=== PATIENT | female | born 1950 | race Caucasian/White ===

== ENCOUNTER 2023-09-09 19:21 | Observation (INO) | payer MEDICARE, OTHER, SELFPAY ==
[2023-09-09] VITALS (7 sets, daily range): BP systolic 98–149; BP diastolic 64–73; BMI 29.8
--- NOTE | 2023-09-09 17:13 | ED.CVA ---
History of Present Illness
General
Chief Complaint: CVA/TIA Symptoms
Source: patient and family
Exam Limitations: none
Time Seen by Provider: 09/09/23 16:58
Onset of Stroke Symptoms
Onset of symptoms known: Yes
Date of onset of symptoms: 09/09/23
Travel History
Have you had any contact with someone who has COVID-19?: No
Do you have any symptoms of coronavirus? Fever > 100 degrees, chills, cough, shortness of breath, sore throat, loss of taste or smell, muscle aches, or headache?: No
History of Present Illness
History of Present Illness:
See MDM
Past History
Past History
ED Past Medical History: HTN, Hypercholesterolemia and NIDDM
Social History
Tobacco: Non-smoker
Phy Exam
Physical Exam
Physical Exam:
See MDM
Scores
NIH Stroke Score
Level of Consciousness: 0 - Alert
LOC Questions: 0-Answers both correctly
LOC Commands: 0-Performs both correctly
Best Horizontal Gaze: 0-Normal
Visual Xiao: 0=Normal, no visual loss
Facial Palsy: 0=Normal, symmetrical
Motor - Right Arm: 0=No drift 10 seconds
Motor - Left Arm: 0=No drift 10 seconds
Motor - Right Le-No drift 5 seconds
Motor - Left Le-No drift 5 seconds
Limb Ataxia: 0-Absent
Sensation: 0-Normal
Best Language: 0-No aphasia
Dysarthria: 0-Normal
Extinction and Inattention: 0-No abnormality
Total Score:: 0
Course
Orders/Labs/Results
Orders:
Orders
09/09/23 16:[address] [CT Head W/o Iv Contrast] Urgent
Comment:
Reason For Exam: visual changes
09/09/23 17:12
Electrocardiogram (*1) Urgent
Reason for Study: TIA/Stroke
EKG- Treatment ONCE
09/09/23 17:30
Aspirin Chewable [Low Strength Aspirin] 324 mg PO NOW STA
09/09/23 17:31
Complete Blood Count/With Diff Urgent
09/09/23 17:50
Comprehensive Metabolic Panel Urgent
09/09/23 18:20
PTT Urgent
Prothrombin Time Urgent
09/09/23 18:23
Potassium Chloride [KCl] 40 meq PO NOW STA
Abnormal Lab Results
09/09/23 09/09/23
17:31 17:50
RBC 3.81 L 10^6/uL
(4.20-5.40)
Hct 33.7 L %
(37.0-47.0)
MCH 32.3 H pg
(27.0-31.0)
MPV 10.8 H fL
(7.4-10.4)
Sodium 134 L mmol/L
(135-145)
Potassium 3.2 L mmol/L
(3.5-5.1)
Creatinine 0.5 L mg/dL
(0.6-1.0)
Glucose 162 H mg/dl
(70-99)
Total Protein 6.0 L g/dl
(6.3-8.2)
09/09/23 17:31
09/09/23 17:50
Vital Signs
Initial and Last Documented VS:
Initial Vital Signs
Temp Pulse Resp BP Pulse Ox
97.8 F 72 18 149/73 99
09/09/23 16:28 09/09/23 16:28 09/09/23 16:28 09/09/23 16:28 09/09/23 16:28
Last Documented Vital Signs
Temp Pulse Resp BP Pulse Ox
97.8 F 66 15 126/67 96
09/09/23 16:28 09/09/23 17:45 09/09/23 17:30 09/09/23 17:30 09/09/23 17:45
MDM/Problems Addressed
Differential Diagnosis Includes:
HPI and MDM Narrative:
73-year-old female presenting with resolved stroke symptoms. Around 3 PM today, patient felt dizzy and was having trouble walking. She developed blurry vision. She then developed expressive aphasia that lasted for 15 minutes or so. This was all
witnessed by the daughter who is at bedside. Symptoms have since resolved. Patient still complains of mild but denies blurry vision or trouble speaking
CT head was ordered in triage. It is negative. We discussed concern for TIA. Given her age and comorbidities, we discussed admission for further TIA workup
Physical exam
General: Well appearing and non-toxic
HEENT: protecting airway. Pupils equal reactive. EOMI. No visual field deficits
Neck: supple
CV: No evidence of cyanosis. Regular rate and rhythm
Resp: No accessory muscle use. Lungs clear
Abd: Non-distended
Extremities: No deformities
Neuro: alert. No focal deficits
Psych: Normal affect
Skin: Intact
Problems Addressed including Acute and Chronic Conditions affecting care:
1. Strokelike symptoms
Acuity: acute
Prognosis: stable
Details: Symptoms have since resolved. Patient is high risk given age and comorbidities. CT head was ordered. Will obtain basic blood work and admit. Patient given aspirin
2. Hypokalemia
Acuity: acute
Prognosis: stable
Details: Will replete orally
Updates
Patient has had no acute neurologic events in the emergency department. Given her comorbidities and age, will admit
Differential Diagnosis (but not limited to): TIA, stroke, hyponatremia
Testing considered: CT angiogram
Drug therapy (if applicable): OTC meds, please see d/c instruction regarding Rx drugs
Amount and/or Complexity of Data Reviewed
Clinical info obtained from: Patient
External data reviewed: N/A
Labs I independently reviewed (but not limited to): Mild hypokalemia
Radiology: The CT scan was personally and independently reviewed. In addition, official CT report reviewed.
Pulse Ox: not hypoxic
EKG independently reviewed: Sinus rhythm, normal axis, no STEMI
Assessment Consultant: N/A
Critical Care: N/A
Risk of Complication:
Social Determinants of health: Good social support
Discussed with other providers: Hospitalist
Escalation of Care includes Admit/Obs: Given age and comorbidities, will admit for further TIA workup
Occasional wrong word or 'sound a like' substitutions may have occurred due to the inherent limitations of voice recognition software. Read the chart carefully and recognize, using context, where substitutions have occurred.
*Critical Care Note
Total Time (30-74mins, 75-104mins- exclusive of procedures): Not Applicable
ED Attending Note
-
Portions of this chart may have been created with voice recognition software.� Occasional wrong word or��sound alike� substitutions may have occurred due to the inherent limitations of voice recognition software.
Discharge Plan
Departure
Patient Disposition: Admit
Date of Disposition: 09/09/23
Time of Disposition: 18:29
Admit to: Telemetry
Presentation/result/management discussed w/ accepting MD/DO: Hospitalist
Discharge Problem:
Brain TIA, Hypokalemia
Prescriptions:
No Action
celecoxib 200 mg capsule
200 mg PO BID
furosemide 40 mg tablet
40 mg PO DAILY
amlodipine 5 mg tablet
5 mg PO DAILY
aspirin 81 mg tablet,delayed release (DR/EC)
81 mg PO DAILY
hydrocortisone [Procto-Med HC] 2.5 % cream with perineal applicator
1 applic [place] BID
citalopram 20 mg tablet
20 mg PO DAILY
phenazopyridine 100 mg tablet
100 mg PO TID PRN (Reason: urinary pain)
gabapentin 100 mg capsule
100 mg PO BID
estradiol 0.01 % (0.1 mg/gram) cream
1 applic VAGINAL .2X WEEKLY
fluticasone propionate 50 mcg/actuation spray,suspension
1 spray INTRANASAL DAILY
metformin 500 mg tablet extended release 24 hr
1,000 mg PO BID
rosuvastatin 5 mg tablet
5 mg PO QPM
valsartan-hydrochlorothiazide 320-25 mg tablet
1 tab PO DAILY
levocetirizine 5 mg tablet
5 mg PO DAILY
cholecalciferol (vitamin D3) 50 mcg (2,000 unit) capsule
50 mcg PO DAILY
Ozempic 0.25 mg or 0.5 mg (2 mg/3 mL) pen injector
0.25 mg SC WEEKLY
Referrals:
Tristen Vizcaino MD [Family Provider] -
Interventions
Interventions:
ED- Fall Risk Assessment Last Done: 09/09/23 18:05
ED- Pulmonary Assessment Last Done: 09/09/23 18:05
ED- Neurological Assessment Last Done: 09/09/23 18:05
ED- Cardiac Assessment Last Done: 09/09/23 18:05
ED Swallowing Screen Last Done: 09/09/23 18:05
Discharge Date and Time
Print Language: OCCITAN
[2023-09-09 17:42] LABS: % Basophils 0.7 % (0-2); % Eosinophils 2.8 % (0-6); % Immature Granulocytes 0.4 % (0-0.5); % Lymphocytes 37.8 % (20.5-51.1); % Monocytes 8.7 % (1.7-9.3); % Neutrophils 49.6 % (42.2-75.2); Absolute Eosinophils 0.2 10^3/uL (0-0.7); Absolute Lymphocytes 2.1 10^3/uL (1.2-3.4); Absolute Monocytes 0.5 10^3/uL (0.1-0.6); Absolute Neutrophils 2.8 10^3/uL (1.4-6.5); Hematocrit 33.7 % (37.0-47.0); Hemoglobin 12.3 g/dL (12.0-16.0); Mean Corp Hgb Conc. 36.5 g/dL (33.0-37.0); Mean Corpuscular Hgb 32.3 pg (27.0-31.0); Mean Corpuscular Volume 88.5 fL (81.0-99.0); Mean Platelet Volume 10.8 fL (7.4-10.4); Nucleated Red Blood Cells % 0 %; Platelet Count 209 10^3/uL (130-400); Red Blood Cell Count 3.81 10^6/uL (4.20-5.40); Red Cell Dist. Width 12.3 % (11.5-14.5); White Blood Cell Count 5.6 10^3/uL (4.8-10.8)
[2023-09-09] MEDS: LOW STRENGTH ASPIRIN 324 MG PO (17:45)
[2023-09-09 18:19] LABS: ALT (SGPT) 30 U/L (0-35); AST (SGOT) 27 U/L (14-36); Albumin 3.9 g/dl (3.5-5.0); Alkaline Phosphatase 55 U/L (38-126); Calcium 9.5 mg/dl (8.4-10.2); Carbon Dioxide 25 mmol/L (22-30); Chloride 98 mmol/L (98-107); Estimated Creatinine Clearance 92 ml/min; Glucose 162 mg/dl (70-99); Potassium 3.2 mmol/L (3.5-5.1); Sodium 134 mmol/L (135-145); Total Bilirubin 0.6 mg/dl (0.2-1.3); eGFR > 60.00
--- NOTE | 2023-09-09 18:28 | HPS.HSE ---
Addendum entered and electronically signed by Joel Anderson MD 09/09/23 20:48:
I saw and examined the patient.
The ZIPPER JOINER or PA's note was reviewed and I agree with the note.
Comment:
Patient 73 years old female with history hypertension, hyperlipidemia, diabetes mellitus, presented to the hospital with expressive aphasia and blurry vision and ataxia. She also felt that he was going to pass out. She also had some generalized
weakness but does not recall if it was focal. This episode lasted several minutes and resolved by the time he came to the ER. Daughter helps translate in the ED for me. She denies any chest pain or shortness of breath. Denies any nausea vomiting
diarrhea fevers or chills or denies any recent illness. She takes aspirin and low-dose statin on a regular basis. CT scan of the head shows no acute intracranial abnormality.
Physical exam:
General: Well Developed, Well Nourished and No Apparent Distress
HEENT: Normocephalic, Atraumatic and Moist Mucous Membranes
Respiratory: Clear to Auscultation; Negative Wheezes, Rales or Rhonchi
Cardiac: Regular Rhythm and S1/S2
GI: Soft, Nontender and Nondistended
Musculoskeletal: No Clubbing, No Cyanosis and No Edema
Neuro: Awake, Alert and Oriented. No gross neurological deficits at the moment but mild pronator drift in the left.
Psych: Calm
A/P:
TIA, rule out abdominal stroke--> aspirin and start Plavix, statin and check fasting lipids in a.m., plan for MRI of the brain, MRA of the head and neck, echocardiogram, PT OT eval. Neurology consult. Will give further recommendations based on her
clinical course.
Original Note:
Family Physician
-
Family Physician: Tristen Vizcaino
Chief Complaint
-
Headache dizzy trouble walking, expressive aphasia
History of Present Illness
73-year-old with past medical history for hypertension, hyperlipidemia, type 2 diabetes presented to us with sudden onset of headache. Took Tylenol with no relief in her symptoms. She walked outside and came back saying she has blurry vision.
Daughter noticed trouble walking. Patient was having trouble expressing herself. It lasted for 15 minutes. Still with some mild headache. Denied fever or chills, congestion, cough patient denied chest pain, short of breath. Patient denied
abdominal pain, nausea, vomiting, diarrhea. Patient denied dysuria hematuria.
CT head with no acute findings
Received a dose of aspirin and potassium in ER. Admitting for further management
Medical History
Past Medical History
Past Medical History: Reports Other
Additional Past Medical History:
Hypertension
Hyperlipidemia
Type 2 diabetes
Past Surgical History: Reports Other
Additional Past Surgical History:
Appendectomy
Social History
Tobacco: Non-smoker
Alcohol: None
Drug: None
Living: With Family
Family History
Family History: Not pertinent
Allergies / Home Medications
Allergies reflects when Allergies were last updated in [employer].
Home Medications with original date entered in [employer]
Allergy/Medication List:
Allergies
Allergy/AdvReac Type Severity Reaction Status Date / Time
Penicillins Allergy Rash Verified 09/09/23 16:33
Home Medications
amlodipine 5 mg tablet 5 mg PO DAILY PRN high blood pressure 09/09/23
aspirin 81 mg tablet,delayed release 81 mg PO DAILY 09/09/23
celecoxib 200 mg capsule 200 mg PO BID PRN arthritis pain 09/09/23
cholecalciferol (vitamin D3) 50 mcg (2,000 unit) capsule 50 mcg PO DAILY 09/09/23
citalopram 20 mg tablet 20 mg PO DAILY PRN depression 09/09/23
furosemide 40 mg tablet 40 mg PO DAILY PRN swelling 09/09/23
gabapentin 100 mg capsule 100 mg PO BID PRN neuropathy 09/09/23
levocetirizine 5 mg tablet 5 mg PO DAILY PRN allergies 09/09/23
metformin 500 mg tablet,extended release 24 hr 1,000 mg PO BID 09/09/23
rosuvastatin 5 mg tablet 5 mg PO QPM 09/09/23
semaglutide 0.25 mg or 0.5 mg (2 mg/3 mL) subcutaneous pen injector (Ozempic) 0.25 mg SC GARCIA 09/09/23
valsartan 320 mg-hydrochlorothiazide 25 mg tablet 0.5 tab PO BID 09/09/23
Review of Systems
-
Constitutional: Reports No Symptoms
EENT: Reports No Symptoms
Respiratory: Reports No Symptoms
Cardiac: Reports No Symptoms
Abdomen/GI: Reports No Symptoms
: Reports No Symptoms
Musculoskeletal: Reports No Symptoms
Skin: Reports No Symptoms
Neurological: Reports Dizzy, Headache and Weakness
Endocrine: Reports No Symptoms
Hematologic/Lymphatic: Reports No Symptoms
Psych: Reports No Symptoms
Physical Exam
Vital Signs
Vital Signs
Temp Pulse Resp BP Pulse Ox
97.8 F 66 15 126/67 96
09/09/23 16:28 09/09/23 17:45 09/09/23 17:30 09/09/23 17:30 09/09/23 17:45
Physical Exam
General: Well Developed, Well Nourished and No Apparent Distress
HEENT: NormoCephalic, Moist mucous membranes and Atraumatic
Respiratory: Clear
Cardiac: S1/S2 and Regular Rhythm; No Murmur or Rub
GI: Soft, Non Tender, Non Distended and Normal Bowel Sounds; No Organomegaly
Rectal: Deferred by Provider
Musculoskeletal: No Clubbing, No Cyanosis and No Edema
Skin: No Rash
Neuro: AO x 3 and Other (Left side weaker)
Psych: Calm
Laboratory Results
-
09/09/23 17:31
09/09/23 17:50
Laboratory Results
PT Cancelled 09/09/23 17:31
INR Cancelled 09/09/23 17:31
APTT Cancelled 09/09/23 17:31
Total Bilirubin 0.6 mg/dl (0.2-1.3) 09/09/23 17:50
AST 27 U/L (14-36) 09/09/23 17:50
ALT 30 U/L (0-35) 09/09/23 17:50
Alkaline Phosphatase 55 U/L (38-126) 09/09/23 17:50
Data Reviewed
-
Diagnostic Radiology: Report Reviewed by me
Lab Data: Labs Reviewed by me
Impression/Plan
-
# Expressive aphasia /dizzy /blurry vision rule out acute TIA
-CT with no acute intracranial abnormality
-EKG normal sinus rhythm
-Received aspirin,Plavix in ER
-Continue aspirin,Plavix
-MRI and MRA in the morning
-Statin continued
-Obtain A1c and lipid profile-
-PT/OT consult
-Neurology consulted
# Hypokalemia/hyponatremia likely from HCTZ
-Sodium 134, K3.2
-KCl in ER
-Monitor BMP in a.m.
# Essential hypertension
-Hold Norvasc
-Hold valsartan/HCTZ
# Type 2 diabetes
-Hold metformin
-Sliding scale
-Carb controlled diet
# Hyperlipidemia
-Statin
# DVT prophylaxis
-SCDs
# CODE STATUS
-Full code
[2023-09-09] MEDS: KCL 40 MEQ PO (18:33)
--- NOTE | 2023-09-09 18:34 | W.PN.UPDATE ---
Update Note
Progress Note Update
This serves as an addendum to the H&P dictated by Rudi Hilton on 09/09/2023.
I saw and examined the patient.
The BOW REHAIRER or PA's note was reviewed and I agree with the note.
Comment:
Patient 73 years old female with history hypertension, hyperlipidemia, diabetes mellitus, presented to the hospital with expressive aphasia and blurry vision and ataxia. She also felt that he was going to pass out. She also had some generalized
weakness but does not recall if it was focal. This episode lasted several minutes and resolved by the time he came to the ER. Daughter helps translate in the ED for me. She denies any chest pain or shortness of breath. Denies any nausea vomiting
diarrhea fevers or chills or denies any recent illness. She takes aspirin and low-dose statin on a regular basis. CT scan of the head shows no acute intracranial abnormality.
Physical exam:
General: Well Developed, Well Nourished and No Apparent Distress
HEENT: Normocephalic, Atraumatic and Moist Mucous Membranes
Respiratory: Clear to Auscultation; Negative Wheezes, Rales or Rhonchi
Cardiac: Regular Rhythm and S1/S2
GI: Soft, Nontender and Nondistended
Musculoskeletal: No Clubbing, No Cyanosis and No Edema
Neuro: Awake, Alert and Oriented. No gross neurological deficits at the moment but mild pronator drift in the left.
Psych: Calm
A/P:
TIA, rule out abdominal stroke--> aspirin and start Plavix, statin and check fasting lipids in a.m., plan for MRI of the brain, MRA of the head and neck, echocardiogram, PT OT eval. Neurology consult. Will give further recommendations based on her
clinical course.
[2023-09-09 18:52] LABS: Blood Urea Nitrogen 14 mg/dl (7-17)
[2023-09-09 19:00] LABS: INR 1.02; PT 13.4 Sec (11.4-14.6)
[2023-09-09] MEDS: PLAVIX 300 MG PO (19:32)
[2023-09-09 21:54] LABS: Glucose - Point of Care 211 mg/dl (70-99)
--- NOTE | 2023-09-10 00:46 | PTCARENOTE ---
Patient received in bed from ED @ 2100. Patient AAOx3, ambulated from stretcher to bed. NIH and neuro checks completed. Oriented to room and call herndon.
[2023-09-10 03:38] VITALS: BP 129/68
[2023-09-10 07:30] VITALS: BP 131/68
[2023-09-10 07:52] LABS: Glucose - Point of Care 134 mg/dl (70-99)
--- NOTE | 2023-09-10 07:56 | CON.NEURO4 ---
Addendum entered and electronically signed by Tomer Elam MD 09/10/23 14:54:
I saw and evaluate the patient reviewed the note by Adali Ariza agree the findings on comments. Brazilian talent acquisition consultant used :
73-year-old woman with a past ministry of hypertension diabetes obesity presented to hospital with headache, lightheadedness expressive aphasia with symptoms lasting around 1 hour or less. No history of TIA or stroke. Denies any history of
migraine headaches although may get headaches with high blood pressure she denies any history of headaches with photophobia vision change or limit her activity. She feels that she is returned to normal.
Neurologic examination is normal
MRI of the brain reviewed that does not show any acute or chronic infarct MRA of the head and neck does not show any significant stenosis or intracranial occlusions or any significant vessel pathology
Assessment: Most likely a TIA of the left hemisphere given the acuity of onset, focal neurologic symptoms as well as risk factors for stroke/TIA, less likely a migraine headache as the patient does not have any characteristic history of migraine
headache.
Recommendations
-Treat with DAPT therapy aspirin and Plavix for 21 days and then go back to her regular aspirin afterward
-Can continue on her home dose of statin as LDL is less than 70
-Discussed the signs of stroke with her that would prompt immediate medical attention calling 911
-Discussed continue to work on exercise diet and control of diabetes and hypertension
-No further workup or monitoring felt necessary no barriers to discharge from my standpoint
Original Note:
Documented by User: Adali Moncada NP 09/10/23 14:35
Consultation - Neurology 4
-
CONSULTING PHYSICIAN: Juanis Elam MD
REFERRING PHYSICIAN: Hospitalists/BLAINE Dey
DICTATED BY: BLAINE Gunn
DATE/TIME OF REQUEST: 09/09/23
DATE/TIME OF CONSULTATION: 09/10/23
Reason for Consultation: TIA/CVA
History of Present Illness:
This is a 73-year-old right-handed female who has presented to the hospital on 09/09/23 with report of headache, light-headedness, aphasia, and ataxia. Patient reports that for the past two weeks she has been feeling light-headed with ambulation and
unsteady on her feet. She has been reaching for furniture to steady herself, which is very unusual for her. Yesterday (09/09/23) around 1500, she reports suddenly developing a severe headache. She took ibuprofen then proceeded to go outside for some
fresh air. Outside, her vision went foggy and she felt lightheaded. She went to walk back inside and felt weak and very unsteady on her feet. She denies any diaphoresis or loss of consciousness. She tried to describe to her daughter what was
happening and only short sounds would come out. She also reports having difficulty understanding what her daughter was saying to her. This lasted for about 15-20 minutes before resolving. On arrival to the ER she reports feeling back to her baseline
except for a mild headache. CT head was obtained and was negative for any acute abnormalities. Blood pressure was 149/73. NIHSS was 0. She was not a candidate for TNK/IAT due to resolution of symptoms/NIHSS 0. She was loaded with DAPT in the ER. She
reports that her headache resolved last night. Today (09/10/23), she feels at her baseline. She denies any headache, dizziness, vision changes, speech/swallow difficulty, nausea, weakness, chest pain, palpitations, and shortness of breath. She
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 She thinks during the event her left side might have felt slightly weaker. She is taking aspirin 81mg daily and denies
missing any doses. She denies any history of migraine, TIA, stroke, or events like this in the past.
Past Medical History: HTN, HLD, NIDDM, neuropathy, depression
Surgical History: Appendectomy
Family History: Reviewed and noncontributory.
Social History: Denies tobacco, alcohol, and illicit drug use.
Allergies: Penicillins.
Home Medications: See below.
Review of Symptoms:
Patient denies any fever, headache, chest pain, shortness of breath, GI or symptoms.
�Per the HPI.�All systems are reviewed negative except above.
Physical Exam:
The patient is afebrile, abdomen is nondistended, breathing is unlabored, skin is warm and dry, no edema.
NIH Stroke Scale:
I performed the NIH stroke scale on the patient on 09/10/23 at 0900. The patient scored 0 points on the NIH stroke scale assessment, which were assigned as follows: See below.
Neurologic Examination:
The patient is awake, alert and oriented x 3. She is able to follow commands and answer questions appropriately. There is no aphasia or dysarthria. On cranial nerve assessment, pupils are 3 mm bilateral, round and reactive to light and
accommodation. Visual xiao are full. Extraocular movements are intact. Facial sensations are intact and bilaterally symmetrical, there is no facial asymmetry. Hearing is intact bilaterally to normal conversation volume. Tongue palate and uvula are
midline. Sternocleidomastoid strengths are full bilaterally. Motor strengths are 5/5 bilateral upper and lower extremities on medical research [place] scale. There is no drift or involuntary movement noted. Deep tendon reflexes are 2+ bilateral
upper and lower extremities and Babinski is absent bilaterally. Sensations of touch, temperature and vibration are intact and bilaterally symmetrical. There was no extinction noted on double simultaneous stimulation. Coordination is intact by finger
to nose bilaterally.
Lab Results: See below.
Neuro Imaging:
1. CT Head 09/09/23: No acute intracranial abnormality noted.
Differentials for the patient's presentation include:
1. TIA or small stroke likely producing patient's symptoms.
2. Orthostatic hypotension possible.
Patient has the following risk factors for their symptoms: HTN, HLD, NIDDM
IV Tenecteplase/IAT candidacy: She was not a candidate for TNK/IAT due to resolution of symptoms/NIHSS 0.
Recommendations:
-Continue DAPT with aspirin 81mg and clopidogrel 75mg daily for 21 days. After 21 days, discontinue clopidogrel and continue aspirin daily only, indefinitely.
-MRI brain, MRA head/neck ordered/pending.
-TTE ordered/pending.
-Orthostatic vital signs BID.
-Permissive hypertension until today at 1500, then goal normotension.
-LDL goal <70. LDL is 37. Continue home rosuvastatin 5mg daily.
-Goal normoglycemia, hbA1c is 6.6.
-NIHSS and neurological checks per unit guidelines.
-Provide patient/family with stroke education packet.
-PT/OT/ST evaluations.
-DVT prophylaxis.
-Will follow pending results.
Discussed patient care with: Dr. Elam, the patient
Vital Signs and Labs
-
Vital Signs and Labs:
Vital Signs
Temp Pulse Resp BP Pulse Ox
97.9 F 62 22 131/68 97
09/10/23 07:30 09/10/23 07:30 09/10/23 07:30 09/10/23 07:30 09/10/23 07:30
Lab Results
09/10/23 07:17
09/10/23 07:17
PT 13.4 Sec (11.4-14.6) 09/09/23 18:41
INR 1.02 09/09/23 18:41
APTT 28.0 Sec (23.4-35.0) 09/09/23 18:41
Sodium 137 mmol/L (135-145) 09/10/23 07:17
Potassium 4.2 mmol/L (3.5-5.1) D 09/10/23 07:17
BUN 12 mg/dl (7-17) 09/10/23 07:17
Glucose 122 mg/dl (70-99) H 09/10/23 07:17
Calcium 9.5 mg/dl (8.4-10.2) 09/10/23 07:17
LDL Cholesterol, Calc 37 mg/dl 09/10/23 07:17
Medications
-
Active Medications
Generic Name Dose Route Start Last Admin
Trade Name Freq PRN Reason Stop Dose Admin
Acetaminophen 650 mg 09/09/23 20:59
Acetaminophen 650 Mg Rectal Suppository RECTAL 10/07/23 20:58
Q4HPRN PRN
YIN, mild pain, or temp >100.4F
Acetaminophen 650 mg 09/09/23 20:59
Acetaminophen 325 Mg Tablet PO 10/07/23 20:58
Q4HPRN PRN
YIN, mild pain, or temp >100.4F
Aspirin 81 mg 09/10/23 08:00
Aspirin 81 Mg (Enteric Coated) Tablet PO 10/08/23 07:59
DAILY CHRIS
Citalopram Hydrobromide 20 mg 09/09/23 20:59
Citalopram 20 Mg Tablet PO 10/07/23 20:58
DAILYPRN PRN
depression
Clopidogrel Bisulfate 75 mg 09/10/23 08:00
Clopidogrel 75 Mg Tablet PO 10/08/23 07:59
DAILY CHRIS
Dextrose 12.5 grams 09/09/23 20:59
Dextrose 50% (0.5 Grams/Ml) 50 Ml Syringe IV 10/07/23 20:58
Y56ECAT PRN
hypoglycemia
Protocol
Glucagon 1 mg 09/09/23 20:59
Glucagon 1 Mg Vial IM 10/07/23 20:58
PRN PRN
hypoglycemia
Protocol
Insulin Aspart 0 units 09/10/23 07:30
Insulin Aspart Low Resistance 300 Units/3 Ml Pen.Injctr SC 10/08/23 07:29
AC CHRIS
Protocol
Rosuvastatin Calcium 5 mg 09/10/23 18:00
Rosuvastatin (Crestor) 5 Mg Tablet PO 10/08/23 17:59
QPM CHRIS
Sodium Chloride 0 flush 09/09/23 22:00
Sodium Chloride 0.9% (Flush) Syringe IV 10/07/23 21:59
PER PROTOCOL CHRIS
Home Medications
�Medication �Instructions �Recorded
amlodipine 5 mg tablet 5 mg PO DAILY PRN high blood 09/09/23
pressure
aspirin 81 mg tablet,delayed 81 mg PO DAILY 09/09/23
release
celecoxib 200 mg capsule 200 mg PO BID PRN arthritis pain 09/09/23
cholecalciferol (vitamin D3) 50 50 mcg PO DAILY 09/09/23
mcg (2,000 unit) capsule
citalopram 20 mg tablet 20 mg PO DAILY PRN depression 09/09/23
furosemide 40 mg tablet 40 mg PO DAILY PRN swelling 09/09/23
gabapentin 100 mg capsule 100 mg PO BID PRN neuropathy 09/09/23
levocetirizine 5 mg tablet 5 mg PO DAILY PRN allergies 09/09/23
metformin 500 mg tablet,extended 1,000 mg PO BID 09/09/23
release 24 hr
rosuvastatin 5 mg tablet 5 mg PO QPM 09/09/23
semaglutide 0.25 mg or 0.5 mg (2 0.25 mg SC GARCIA 09/09/23
mg/3 mL) subcutaneous pen injector
(Ozempic)
valsartan 320 0.5 tab PO BID 09/09/23
mg-hydrochlorothiazide 25 mg tablet
NIH Stroke Score
Subsequent NIH Scale
Date of Subsequent NIH Scale: 09/10/23
Time of Subsequent NIH Scale: 09:00
NIH Stroke Score
Level of Consciousness: 0 - Alert
LOC Questions: 0-Answers both correctly
LOC Commands: 0-Performs both correctly
Best Horizontal Gaze: 0-Normal
Visual Xiao: 0=Normal, no visual loss
Facial Palsy: 0=Normal, symmetrical
Motor - Right Arm: 0=No drift 10 seconds
Motor - Left Arm: 0=No drift 10 seconds
Motor - Right Le-No drift 5 seconds
Motor - Left Le-No drift 5 seconds
Limb Ataxia: 0-Absent
Sensation: 0-Normal
Best Language: 0-No aphasia
Dysarthria: 0-Normal
Extinction and Inattention: 0-No abnormality
Total Score:: 0
Modified [place] (mRS) Score
Modified Joshua Scale (mRS): No symptoms
Score: 0

Documented by User: Tomer Elam MD 09/10/23 14:51
NIH Stroke Score
NIH Stroke Score
Total Score:: 0
Modified [place] (mRS) Score
Score: 0
[2023-09-10 08:09] LABS: Hematocrit 35.5 % (37.0-47.0); Hemoglobin 12.5 g/dL (12.0-16.0); Mean Corp Hgb Conc. 35.2 g/dL (33.0-37.0); Mean Corpuscular Hgb 31.8 pg (27.0-31.0); Mean Corpuscular Volume 90.3 fL (81.0-99.0); Mean Platelet Volume 10.4 fL (7.4-10.4); Platelet Count 201 10^3/uL (130-400); Red Blood Cell Count 3.93 10^6/uL (4.20-5.40); Red Cell Dist. Width 12.2 % (11.5-14.5); White Blood Cell Count 4.9 10^3/uL (4.8-10.8)
[2023-09-10 08:57] LABS: Blood Urea Nitrogen 12 mg/dl (7-17); Calcium 9.5 mg/dl (8.4-10.2); Carbon Dioxide 24 mmol/L (22-30); Chloride 104 mmol/L (98-107); Estimated Creatinine Clearance 92 ml/min; Glucose 122 mg/dl (70-99); HDL Cholesterol 39 mg/dl; LDL Cholesterol, Calculated 37 mg/dl; Potassium 4.2 mmol/L (3.5-5.1); Sodium 137 mmol/L (135-145); Total Cholesterol 95 mg/dl (50-199); Triglyceride 97 mg/dl (10-149); Very Low Density Lipoprotein 19 mg/dl (0-30); eGFR > 60.00
--- NOTE | 2023-09-10 09:00 | W.PN.HOSP.TC ---
Today's Communication/Plan
-
MRI of the brain, MRA of the head and neck. Echocardiogram. Check orthostatics. PT OT eval
Assessment / Plan
Assessment / Plan
Physical exam:
General: Well Developed, Well Nourished and No Apparent Distress
HEENT: Normocephalic, Atraumatic and Moist Mucous Membranes
Respiratory: Clear to Auscultation; Negative Wheezes, Rales or Rhonchi
Cardiac: Regular Rhythm and S1/S2
GI: Soft, Nontender and Nondistended
Musculoskeletal: No Clubbing, No Cyanosis and No Edema
Neuro: Awake, Alert and Oriented. No gross neurological deficits at the moment but mild pronator drift in the left.
Psych: Calm
A/P:
# Expressive aphasia /dizzy /blurry vision rule out acute TIA versus orthostatic hypotension versus evolving small stroke
-CT with no acute intracranial abnormality
-EKG normal sinus rhythm
-Received aspirin,Plavix in ER
-Continue aspirin,Plavix
-MRI and MRA pending
-Statin continued
-Obtain A1c and lipid profile-LDL 37, hemoglobin A1c 6.6
-PT/OT consult
-Neurology consulted
# Hypokalemia/hyponatremia likely from HCTZ
-Sodium 134, K3.2
-KCl in ER
-Monitor BMP in a.m.
# Essential hypertension
-Hold Norvasc
-Hold valsartan/HCTZ
# Type 2 diabetes
-Hold metformin
-Sliding scale
-Carb controlled diet
# Hyperlipidemia
-Statin
# DVT prophylaxis
-SCDs
# CODE STATUS
-Full code
Anticipated Discharge: Within 24 hours
Subjective/Interval History
-
Date of Service: September 10, 2023
Patient denies any new events today.
Objective Data
-
Labs:
Laboratory Results
09/10/23
07:17
WBC 4.9
Hgb 12.5
Hct 35.5 L
Plt Count 201
Sodium 137
Potassium 4.2 D
Chloride 104
Carbon Dioxide 24
BUN 12
Creatinine 0.5 L
Glucose 122 H
Calcium 9.5
Vital Signs:
Vital Signs
Temp Pulse Resp BP Pulse Ox
98.1 F 69 18 129/68 97
09/10/23 03:38 09/10/23 03:38 09/10/23 03:38 09/10/23 03:38 09/10/23 03:38
I&O
09/09/23 09/10/23 09/11/23
06:59 06:59 06:59
Intake Total 120 / 120
Balance 120 / 120
[2023-09-10] MEDS: ASPIR LOW (ENTERIC COATED) 81 MG PO (09:48)
[2023-09-10] MEDS: PLAVIX 75 MG PO (09:48)
[2023-09-10 09:58] LABS: Glycohemoglobin (HgbA1c) 6.6 % (4.0-5.6)
--- NOTE | 2023-09-10 10:28 | PTOTSP ---
SPEECH THERAPY SWALLOW EVALUATION:
Patient presents with grossly functional oropharyngeal swallow. No signs or symptoms of aspiration noted at this time. WBC WNL. Head CT demonstrating no acute abnormality. Recommend continue Regular texture diet, thin liquids. Medications whole with
liquid as tolerated. General aspiration precautions including upright positioning and slow rate of intake. Swallow therapy is not indicated at this time. Informal assessment of speech/language/cognitive communication skills appeared grossly WFL at
this time. ST to follow-up for comprehensive Speech/language/cognitive communication evaluation pending MRI results if warranted. Otherwise, no further ST services are indicated at this time.
RECOMMEND:
1) Regular texture diet, thin liquids
2) Medications whole with liquid as tolerated
3) ST to follow-up for comprehensive Speech/language/cognitive communication evaluation pending MRI results if warranted
--- NOTE | 2023-09-10 11:43 | CM ---
Addendum entered by Nguyen Carlos 09/10/23 15:37:
CM spoke with patient and patients daughter, declining home PT needs at this time. Patients son in law will provide transportation home.
[facility]

Original Note:
Patient seen bedside, spoke with patients daughter, Lauren, who assisted with translation. Per daughter, patient resides independently in a two story home with two steps to enter, patient has a cane if needed. Patient has caregivers 8 hours daily
through [facility] ([phone]), spoke with agency, confirmed patient receives care, will fax clinicals to [phone]. Lauren confirmed patients PCP Tristen Vizcaino, [facility] in [place]. CM reviewed SCHAEFER form
with patient, refused to sign, placed in chart. CM will continue to follow for discharge planning needs, will watch for PT/OT evaluations.
Plan; home with caregiver, watch for further needs from PT/OT evals.
[facility]
[2023-09-10 11:45] LABS: Glucose - Point of Care 118 mg/dl (70-99)
[2023-09-10 14:10] VITALS: BP 139/75; PULSE 67; O2SAT 98
--- NOTE | 2023-09-10 14:52 | W.DCSUMMARY ---
Discharge Summary
Discharge Data
Date of Admission: 09/09/23
Date of Discharge: 09/10/23
-
Pending Results: No
Hospital Course
Patient 73 years old female history of hypertension, diabetes mellitus, obesity, hyperlipidemia, presented to the hospital with sudden onset of transient neurological deficits. Neurology consulted. MRI of the brain no acute intracranial process
and MRA of the head and neck no significant stenosis (including less than 50% stenosis of the ICA bilaterally). Transthoracic echocardiogram normal EF and no thrombus. Patient was placed on dual antiplatelet therapy and kept on her statins.
Neurology recommended to continue dual antiplatelet therapy for 21 days and then back to her aspirin afterwards. She is neurologically intact and back to her baseline. Neurology cleared for discharge. She is going to be discharged in stable
condition today.
Discharge duration: 34 minutes
Discharge Plan
-
Patient Disposition: Home (Routine Discharge)
Discharge Diagnosis/Procedures: Transient ischemic attack
Diet: As tolerated
Activity: As tolerated
Blood Work: Please PCP to order CBC, BMP within 1 week
Referrals:
Tristen Vizcaino MD [Family Provider] - in less than 1 week
Prescriptions:
New
clopidogrel 75 mg Tablet
75 mg PO DAILY 21 Days Qty: 21 0RF
Continued
furosemide 40 mg tablet
40 mg PO DAILY PRN (Reason: swelling)
amlodipine 5 mg tablet
5 mg PO DAILY PRN (Reason: high blood pressure)
aspirin 81 mg tablet,delayed release (DR/EC)
81 mg PO DAILY
citalopram 20 mg tablet
20 mg PO DAILY PRN (Reason: depression)
gabapentin 100 mg capsule
100 mg PO BID PRN (Reason: neuropathy)
metformin 500 mg tablet extended release 24 hr
1,000 mg PO BID
rosuvastatin 5 mg tablet
5 mg PO QPM
valsartan-hydrochlorothiazide 320-25 mg tablet
0.5 tab PO BID
levocetirizine 5 mg tablet
5 mg PO DAILY PRN (Reason: allergies)
cholecalciferol (vitamin D3) 50 mcg (2,000 unit) capsule
50 mcg PO DAILY
Ozempic 0.25 mg or 0.5 mg (2 mg/3 mL) pen injector
0.25 mg SC GARCIA
Discontinued
celecoxib 200 mg capsule
200 mg PO BID PRN (Reason: arthritis pain)
Discharge Orders:
Discharge Patient (As Directed); Ordered 09/10/23
Ordered By: Joel Anderson
Discharge Date and Time
Discharge Date/Time: 09/10/23 17:16
Print Language: BRITISH
[2023-09-10 15:00] VITALS: BP 141/82
== END 2023-09-10 17:16 | disposition home health service (06) ==
LOC: 4 WEST ACU 19:21
PROVIDERS: Registered Nurse; ADMITTING PHYSICIAN Hospitalist; EMERGENCY PHYSICIAN Student in an Organized Health Care Education/Training Program; FAMILY PHYSICIAN Internal Medicine; OTHER PHYSICIAN Student in an Organized Health Care Education/Training Program
DX: G45.9 Transient cerebral ischemic attack, unspecified (principal); E78.00 Pure hypercholesterolemia, unspecified; E11.40 Type 2 diabetes mellitus with diabetic neuropathy, unspecified; I10 Essential (primary) hypertension; E87.1 Hypo-osmolality and hyponatremia; E87.6 Hypokalemia; F32.A Depression, unspecified; E66.9 Obesity, unspecified; Z68.29 Body mass index [BMI] 29.0-29.9, adult; Z79.02 Long term (current) use of antithrombotics/antiplatelets; Z79.82 Long term (current) use of aspirin; Z79.84 Long term (current) use of oral hypoglycemic drugs; Z79.899 Other long term (current) drug therapy
CPT/HCPCS: 70450; 70544; 70548; 70551; 80048; 80053; 80061; 82962; 83036; 85025; 85027; 85610; 85730; 92610; 93005; 93306; 97161; 97165; 99285; A9585; G0378

== ENCOUNTER 2024-03-07 17:59 | Observation (INO) | payer MEDICARE, OTHER, SELFPAY ==
[2024-03-07] VITALS (7 sets, daily range): BP systolic 134–169; BP diastolic 68–84; PULSE 64–74; BMI 34.0
--- NOTE | 2024-03-07 12:22 | ED.GENMED ---
ED Provider Triage
<Deepak Jean PA-C - Last Filed: 03/07/24 12:25>
-
Patient seen by provider in Triage?: Seen in Triage
Attestation: A medical screening examination has been initiated by a qualified medical provider. Based on the assessment performed at this time, it has been determined that an emergent medical condition may exist and the patient has been informed
that further medical evaluation and possible additional diagnostic testing may be needed.
HPI: 74-year-old female with history of hypertension presents for evaluation of dizziness. Symptoms were initially present whether she was upright or lying down, was prescribed meclizine by her primary care physician and feels this is somewhat
beneficial but she is still dizzy and has a hard time walking. No headache or vision changes. No chest pain. Has noted hypertensive episodes at home with systolic pressures greater than 180
GENERAL: Alert , in no apparent distress
EYE: No visual abnormalities.
NECK: Trachea midline
ENT: No visible abnormalities.
LUNGS: No acute respiratory distress
NEUROLOGICAL: Alert and oriented
SKIN: Skin intact. No visible changes.
MUSCULOSKELETAL: Moving extremities normally
PSYCH: Normal and appropriate interaction.
A/P: Dizziness, there does appear to be a vertiginous aspect of her symptoms however given that she does not have resolution when lying flat and no significant proved with meclizine will obtain CT of the head in addition to labs and EKG
This is a medical evaluation conducted in person to initiate diagnostic evaluation and provide initial therapeutics. Please see further documentation by the treating clinician.
History of Present Illness
<Deepak Jean PA-C - Last Filed: 03/07/24 12:25>
General
Chief Complaint: Blood Pressure Problem
Time Seen by Provider: 03/07/24 14:03
<Nicki Shabazz PA-C - Last Filed: 03/07/24 18:31>
General
Source: patient
Exam Limitations: none
Nursing documentation reviewed up to this point in time: agreed with
History of Present Illness
History of Present Illness:
73-year-old female with history hypertension, TIA, diabetes presenting to the emergency department for evaluation of dizziness. Patient states that over the past 5 to 6 days she has been experiencing dizziness. Symptoms do seem to be worse with
movement although mildly present at rest. Patient describes dizziness as a 'spinning sensation'. Patient reports multiple episodes of vomiting on initial onset 6 days ago. Patient does note that she has noticed intermittent high blood pressure
readings into the 180s/100s since dizziness is started patient did have a telemedicine visit with her primary care Wednesday who prescribed her a few days of meclizine with very little to no improvement in symptoms.
Patient did have a TIA in August 2023.
Past History
<Deepak Jean PA-C - Last Filed: 03/07/24 12:25>
Past History
ED Past Medical History: HTN, Hypercholesterolemia and NIDDM
Social History
Tobacco: Non-smoker
Review of Systems
<Nicki Shabazz PA-C - Last Filed: 03/07/24 18:31>
Review of Systems
Allergies reviewed?: Yes
All Other Systems: ROS reviewed and negative except as documented in HPI and ROS
Phy Exam
<Nicki Shabazz PA-C - Last Filed: 03/07/24 18:31>
Physical Exam
Physical Exam:
Vitals: Patient's vital signs are stable. Afebrile
General: Patient is well appearing, no acute distress
Skin: Warm and dry, no rashes or lesions
Head: Normocephalic, atraumatic
Eyes: Sclera nonicteric. EOMs intact. Pupils equal round and reactive to light bilaterally. No nystagmus.
Throat: Protecting airway
Neck: Normal ROM, no cervical spine tenderness, no meningismus
Cardiac: Regular rate and rhythm, no murmurs.
Pulm: Normal respiratory effort, no wheezes, rales, rhonchi heard on exam.
Abdomen: Abdomen soft. No abdominal tenderness.
Extremities: No evidence of cyanosis or edema. Great distal pulses
Neuro: AAOx3. Mild ataxia noted. CN II-XII intact. No focal neurologic deficits. Normal finger-nose. Normal [id number]. Fluid speech.
Psychiatric: Normal affect.
Course
<Deepak Jean PA-C - Last Filed: 03/07/24 12:25>
Orders/Labs/Results
Orders:
Orders
03/07/24 12:21
Electrocardiogram (*1) Urgent
Reason for Study: Vertigo / Dizzy
CT Head W/o Iv Contrast Urgent
Comment:
Reason For Exam: dizziness
EKG- Treatment ONCE
03/07/24 12:33
Complete Blood Count/With Diff Urgent
Comprehensive Metabolic Panel Urgent
03/07/24 15:00
Consult Neurology [NEUROLOGY CONSULT] Urgent
Consulting Provider: Christen Rodas
Was physician already notified: Yes
03/07/24 16:03
MR Brain Without Contrast Routine
Comment:
Reason For Exam: vertigo
OK for patient to be off Cardiac Monitoring for MRI: No
Recent pill cam endoscopy?: No
03/07/24 17:46
Admit/Transfer Patient As Directed
Co-Sign Provider:
Level of Care: Observation services
Assign to:: Telemetry
Physician / Group: Jaswant
Diagnosis: Vertigo
Reason for Telemetry: CVA/TIA
Date to Stop Telemetry: 03/10/24
Time to Stop Telemetry: 11:00
03/07/24 17:47
Code Status As Directed
Resuscitation Status: Full Code
03/10/24 11:00
DC Protocol for Telemetry ONCE
Abnormal Lab Results
03/07/24
12:33
MCH 31.4 H pg
(27.0-31.0)
Glucose 173 H mg/dl
(70-99)
AST 42 H U/L
(14-36)
ALT 51 H U/L
(0-35)
03/07/24 12:33
03/07/24 12:33
Vital Signs
Initial and Last Documented VS:
Initial Vital Signs
Temp Pulse Resp BP Pulse Ox
98.2 F 78 18 146/82 98
03/07/24 12:19 03/07/24 12:19 03/07/24 12:19 03/07/24 12:19 03/07/24 12:19
Last Documented Vital Signs
Temp Pulse Resp BP Pulse Ox
98.2 F 64 16 141/70 96
03/07/24 12:19 03/07/24 17:00 03/07/24 17:00 03/07/24 17:00 03/07/24 17:00
<Nicki Shabazz PA-C - Last Filed: 03/07/24 18:31>
Orders/Labs/Results
Orders:
Orders
03/07/24 12:21
Electrocardiogram (*1) Urgent
Reason for Study: Vertigo / Dizzy
CT Head W/o Iv Contrast Urgent
Comment:
Reason For Exam: dizziness
EKG- Treatment ONCE
03/07/24 12:33
Complete Blood Count/With Diff Urgent
Comprehensive Metabolic Panel Urgent
03/07/24 15:00
Consult Neurology [NEUROLOGY CONSULT] Urgent
Consulting Provider: Christen Rodas
Was physician already notified: Yes
03/07/24 16:03
MR Brain Without Contrast Routine
Comment:
Reason For Exam: vertigo
OK for patient to be off Cardiac Monitoring for MRI: No
Recent pill cam endoscopy?: No
03/07/24 17:46
Admit/Transfer Patient As Directed
Co-Sign Provider:
Level of Care: Observation services
Assign to:: Telemetry
Physician / Group: Jaswant
Diagnosis: Vertigo
Reason for Telemetry: CVA/TIA
Date to Stop Telemetry: 03/10/24
Time to Stop Telemetry: 11:00
03/07/24 17:47
Code Status As Directed
Resuscitation Status: Full Code
03/10/24 11:00
DC Protocol for Telemetry ONCE
Abnormal Lab Results
03/07/24
12:33
MCH 31.4 H pg
(27.0-31.0)
Glucose 173 H mg/dl
(70-99)
AST 42 H U/L
(14-36)
ALT 51 H U/L
(0-35)
03/07/24 12:33
03/07/24 12:33
Vital Signs
Initial and Last Documented VS:
Initial Vital Signs
Temp Pulse Resp BP Pulse Ox
98.2 F 78 18 146/82 98
03/07/24 12:19 03/07/24 12:19 03/07/24 12:19 03/07/24 12:19 03/07/24 12:19
Last Documented Vital Signs
Temp Pulse Resp BP Pulse Ox
98.2 F 64 16 141/70 96
03/07/24 12:19 03/07/24 17:00 03/07/24 17:00 03/07/24 17:00 03/07/24 17:00
Mohsenlt;Joe Kearns, DO - Last Filed: 03/07/24 15:09>
Orders/Labs/Results
Orders:
Orders
03/07/24 12:21
Electrocardiogram (*1) Urgent
Reason for Study: Vertigo / Dizzy
CT Head W/o Iv Contrast Urgent
Comment:
Reason For Exam: dizziness
EKG- Treatment ONCE
03/07/24 12:33
Complete Blood Count/With Diff Urgent
Comprehensive Metabolic Panel Urgent
03/07/24 15:00
Consult Neurology [NEUROLOGY CONSULT] Urgent
Consulting Provider: Christen Rodas
Was physician already notified: Yes
03/07/24 16:03
MR Brain Without Contrast Routine
Comment:
Reason For Exam: vertigo
OK for patient to be off Cardiac Monitoring for MRI: No
Recent pill cam endoscopy?: No
03/07/24 17:46
Admit/Transfer Patient As Directed
Co-Sign Provider:
Level of Care: Observation services
Assign to:: Telemetry
Physician / Group: Jaswant
Diagnosis: Vertigo
Reason for Telemetry: CVA/TIA
Date to Stop Telemetry: 03/10/24
Time to Stop Telemetry: 11:00
03/07/24 17:47
Code Status As Directed
Resuscitation Status: Full Code
03/10/24 11:00
DC Protocol for Telemetry ONCE
Abnormal Lab Results
03/07/24
12:33
MCH 31.4 H pg
(27.0-31.0)
Glucose 173 H mg/dl
(70-99)
AST 42 H U/L
(14-36)
ALT 51 H U/L
(0-35)
03/07/24 12:33
03/07/24 12:33
Vital Signs
Initial and Last Documented VS:
Initial Vital Signs
Temp Pulse Resp BP Pulse Ox
98.2 F 78 18 146/82 98
03/07/24 12:19 03/07/24 12:19 03/07/24 12:19 03/07/24 12:19 03/07/24 12:19
Last Documented Vital Signs
Temp Pulse Resp BP Pulse Ox
98.2 F 64 16 141/70 96
03/07/24 12:19 03/07/24 17:00 03/07/24 17:00 03/07/24 17:00 03/07/24 17:00
<Nicki Shabazz PA-C - Last Filed: 03/07/24 18:31>
MDM/Problems Addressed
Differential Diagnosis Includes:
Not limited to: BPPV, labyrinthitis dehydration, orthostatic hypotension, cardiac arrhythmia, CVA
MDM/Problems Addressed:
73-year-old female presenting with 6 days of persistent dizziness and elevated blood pressure at home. Dizziness somewhat positional in nature although associated with ataxia and a few episodes of vomiting. No improvement with meclizine as
prescribed by PCP. Mildly hypertensive here although otherwise vital signs stable. Physical exam as above. Patient does have mild ataxia although no other focal neurologic findings. Normal [id number]-rb-lftv and uuqu-iw-ynsv. Labs initiated in
triage without any clinically significant abnormalities. CT head initially in triage without any acute abnormalities. EKG without any acute ischemic changes. Differential broad at this time and includes peripheral process such as BPPV, lab
and-itis, etc. Although given associated ataxia and history of TIA�must rule out central process such as CVA. Will consult neurology for evaluation and their input.
Update: Neurology, Dr. Rodas, down to see patient at bedside. Recommends admission to hospitalist for MRI to rule out central process. Plan for admission to hospitalist, MRI tomorrow and PT eval for vestibular therapy. Patient accepted to
hospitalist in stable condition. Patient seen with attending physician.
Chronic conditions affecting care:
Hyperlipidemia, hypertension
Acute Exacerbation and/or Progression of Chronic Illness:
Acutely hypertensive
<Nicki Shabazz PA-C - Last Filed: 03/07/24 18:31>
*Radiology
Radiology exam reviewed: preliminary read by ED provider and radiology read reviewed
*Pulse Oximetry
Patient hypoxic: no
*EKG
Interpreted by ED Provider?: Yes
EKG Intrepretation Date: 03/07/24
Interpretation: normal
Comparison EKG: no changes
Heart Rate: 68
Rate: normal
Rhythm: sinus
[place]: normal axis
Interval: normal interval
QRS Pattern: normal QRS
Ischemia: no ischemia
*Motor And Generator Brush Cutter Interpretation
Rate: Motor And Generator Brush Cutter- N/A
*Critical Care Note
Total Time (30-74mins, 75-104mins- exclusive of procedures): Not Applicable
Data Reviewed
Review of Other/Old Records Reveals: Records (Hospital record from 09/09/2023 to 09/10/2023-patient was admitted with TIA) and Radiology Studies (Head and neck MRA 09/10/2023)
<Nicki Shabazz PA-C - Last Filed: 03/07/24 18:31>
Patient Management
Discussion with other providers: Hospitalist and Science Faculty Member (Neurology- Dr. Rodas)
Escalation/DeEscalation of care consider admission/obs:
Admit for MRI to rule out central process and PT eval
ED Attending Note
<Deepak Jean PA-C - Last Filed: 03/07/24 12:25>
-
Portions of this chart may have been created with voice recognition software.� Occasional wrong word or��sound alike� substitutions may have occurred due to the inherent limitations of voice recognition software.
<Joe Kearns DO - Last Filed: 03/07/24 15:09>
ED Attending Note
Patient seen and examined by attending physician: Yes
I performed the substantive portion of visit, reviewed & personally made and approve the management plan that is documented in note by myself or PADILLA.: Yes
ED Attending Note:
Seen with PA examined independently workup noted
Will ask for neurology evaluation
Discharge Plan
Departure
Patient Disposition: Admit
Date of Disposition: 03/07/24
Time of Disposition: 16:16
Presentation/result/management discussed w/ accepting MD/DO: Hospitalist
Discharge Problem:
Dizziness
Interventions
Interventions:
*Risk Screen - Suicide Last Done: 03/07/24 12:19
*General Assessment Last Done: 03/07/24 14:54
*Neglect/Abuse Screening Last Done: 03/07/24 14:54
ED- Fall Risk Assessment Last Done: 03/07/24 14:54
*ED COVID-19 Vaccine History Last Done: 03/07/24 14:54
ED- Pulmonary Assessment Last Done: 03/07/24 14:54
ED- Neurological Assessment Last Done: 03/07/24 14:54
ED- Cardiac Assessment Last Done: 03/07/24 14:54
[2024-03-07 12:42] LABS: % Basophils 0.7 % (0-2); % Eosinophils 1.8 % (0-6); % Immature Granulocytes 0.4 % (0-0.5); % Lymphocytes 32.5 % (20.5-51.1); % Monocytes 6.7 % (1.7-9.3); % Neutrophils 57.9 % (42.2-75.2); Absolute Eosinophils 0.1 10^3/uL (0-0.7); Absolute Lymphocytes 1.8 10^3/uL (1.2-3.4); Absolute Monocytes 0.4 10^3/uL (0.1-0.6); Absolute Neutrophils 3.2 10^3/uL (1.4-6.5); Hematocrit 38.4 % (37.0-47.0); Hemoglobin 13.7 g/dL (12.0-16.0); Mean Corp Hgb Conc. 35.7 g/dL (33.0-37.0); Mean Corpuscular Hgb 31.4 pg (27.0-31.0); Mean Corpuscular Volume 87.9 fL (81.0-99.0); Mean Platelet Volume 10.3 fL (7.4-10.4); Nucleated Red Blood Cells % 0 %; Platelet Count 202 10^3/uL (130-400); Red Blood Cell Count 4.37 10^6/uL (4.20-5.40); White Blood Cell Count 5.5 10^3/uL (4.8-10.8)
[2024-03-07 13:30] LABS: ALT (SGPT) 51 U/L (0-35); AST (SGOT) 42 U/L (14-36); Albumin 4.6 g/dl (3.5-5.0); Alkaline Phosphatase 53 U/L (38-126); Blood Urea Nitrogen 11 mg/dl (7-17); Calcium 9.9 mg/dl (8.4-10.2); Carbon Dioxide 25 mmol/L (22-30); Chloride 101 mmol/L (98-107); Glucose 173 mg/dl (70-99); Potassium 3.6 mmol/L (3.5-5.1); Sodium 141 mmol/L (135-145); Total Bilirubin 1.1 mg/dl (0.2-1.3); Total Protein 6.7 g/dl (6.3-8.2); eGFR > 60.00
--- NOTE | 2024-03-07 15:40 | CON.NEURO ---
Consultation
Order
Date of Consultation: 03/07/24
Requesting Provider: Nicki Shabazz PA
Reason for Consult: dizziness
CC: spinning
HPI: This is a 73-year-old right-handed woman who presented to [facility] on March 07, 2024 with dizziness. According to the patient she developed an acute sensation of spinning with associated nausea and emesis as well as ataxia on
03/01/2024 upon awakening. Her symptoms were continuous, worse with changing position and eye movements. No reports of headache, dysarthria, dysphagia, diplopia, motor or sensory deficits. Patient denied having ear ache, tinnitus, fever or head
trauma.
Ms. Glae states that her symptoms have improved following initiation of meclizine however returned today in the morning prompting her to seek medical attention.
The patient was seen by neurology service in August 2023 for transient expressive aphasia lasting for 15 minutes. Her workup was unremarkable. Patient was discharged on DAPT.
ER VS: 146/82, 78, afebrile.
EKG-NSR, QTc Int : 450 ms
PDMP: No recently prescribed medications.
CT head-No evidence of acute intracranial abnormality.
Labs: gluc 173, normal Hb, PL, GFR, Na
PMH: HTN, DLP, DM, polyneuropathy
PSH:appendectomy
SH: lives with son, independent in ADLs, retired; non-smoker.
FH: son�hydrocephalus, epilepsy; mother from gastric cancer, father�hepatic cirrhosis
All: Penicillins
ROS:Constitutional: Negative. Negative for chills, fever and unexpected weight change.
HENT: positive for vertigo
Eyes: Negative. Negative for photophobia, pain and visual disturbance.
Respiratory: Negative for cough, choking and shortness of breath.
Cardiovascular: Negative for chest pain, palpitations and leg swelling.
Gastrointestinal: positive for intermittent nausea/emesis
Endocrine: Negative. Negative for cold intolerance.
Genitourinary: Negative for dysuria, flank pain and urgency.
Musculoskeletal: Negative for back pain, gait problem, neck pain and neck stiffness.
Skin: Negative for rash.
Allergic/Immunologic: Negative. Negative for immunocompromised state.
Neurological: positive for allodynia and distal paresthesias in the left foot.
Psychiatric/Behavioral: Negative for behavioral problems, confusion and hallucinations.
General: Well developed. In no acute distress.
Cardio: Regular rate and rhythm without murmur. Extremities are without cyanosis or edema.
Neuro:
Mental Status: Alert, oriented to person, place, and date. Normal attention and recall. Good fund of knowledge. Follows complex requests across the midline. Comprehension, naming, and repetition intact. Immediate and delayed recall 3/3.
Cranial Nerves: . Pupils are equally round and reactive to light. EOMs full. Visual chatman full to confrontation. No ptosis. No nystagmus. V1-V3 intact to light touch and pinprick bilaterally, symmetric. Face symmetric. Normal hearing AU.
The palate elevated well. SCMs and traps 5/5. Tongue midline. No dysarthria.
Motor: Normal bulk and tone. No pronator or arm drift. Strength 5/5 throughout. No clonus.
Reflexes: 2+ throughout the upper extremities and knees. Plantar responses flexor bilaterally.
Sensory: reduced vibration at the R>L toes
Coordination: No dysmetria on FTN or HTS or tremor.
Gait: deferred
Assessment and Plan:
I. Vestibular neuritis vs central positional vertigo(vermal infarct) vs BPPV
II. History of TIA(08/2023)
III Metabolic polyneuropathy
-Fall precautions
-PT(�for Rylee-Hallpike maneuver)
-Brain MRI wo jesika
-Continue ASA 81mg QD
-Meclizine 25 mg Q8h PRN, Diazepam 1 mg Q12h PRN for vertigo
-ENT consult
-DVT prophylaxis
I personally reviewed all radiology and labs along with past medical records pertinent to current medical problems. Total time spent in patient care is 60 minutes.
Thank you for allowing us to participate in the care of this patient. We will continue to follow. Please do not hesitate to contact us with any questions or concerns.
Subjective/Objective
Subjective Data
Date of Service: March 07, 2024
Objective Data
Vital Signs
Temp Pulse Resp BP Pulse Ox
36.8 C 80 18 144/72 98
03/07/24 12:19 03/07/24 14:00 03/07/24 14:00 03/07/24 14:00 03/07/24 12:19
Lab Results
03/07/24 12:33
03/07/24 12:33
Sodium 141 mmol/L (135-145) 03/07/24 12:33
Potassium 3.6 mmol/L (3.5-5.1) 03/07/24 12:33
BUN 11 mg/dl (7-17) 03/07/24 12:33
Glucose 173 mg/dl (70-99) H 03/07/24 12:33
Calcium 9.9 mg/dl (8.4-10.2) 03/07/24 12:33
Patient Allergies
Penicillins Allergy (Verified 03/07/24 12:19)
Rash
Medications
-
Home Medications
�Medication �Instructions �Recorded
amlodipine 5 mg tablet 5 mg PO DAILY PRN high blood 09/09/23
pressure
aspirin 81 mg tablet,delayed 81 mg PO DAILY Blood Clot 09/09/23
release Prevention/Tx
cholecalciferol (vitamin D3) 50 50 mcg PO DAILY 09/09/23
mcg (2,000 unit) capsule
citalopram 20 mg tablet 20 mg PO DAILY PRN depression 09/09/23
furosemide 40 mg tablet 40 mg PO DAILY PRN swelling 09/09/23
gabapentin 100 mg capsule 100 mg PO BID PRN neuropathy 09/09/23
levocetirizine 5 mg tablet 5 mg PO DAILY PRN allergies 09/09/23
metformin 500 mg tablet,extended 1,000 mg PO BID Diabetes 09/09/23
release 24 hr
rosuvastatin 5 mg tablet 5 mg PO QPM High Cholesterol 09/09/23
semaglutide 0.25 mg or 0.5 mg (2 0.25 mg SC GARCIA Diabetes 09/09/23
mg/3 mL) subcutaneous pen injector
(Ozempic)
valsartan 320 0.5 tab PO BID Blood Pressure 09/09/23
mg-hydrochlorothiazide 25 mg tablet
clopidogrel 75 mg tablet 75 mg PO DAILY 21 days #21 tabs 09/10/23
--- NOTE | 2024-03-07 17:38 | HPS.HSE ---
Addendum entered and electronically signed by Arnulfo Gleason DO 03/07/24 20:24:
Patient seen and examined independently. Agree with findings and plan as set forth by Estephania Hartman PA-C.
Patient is a 73y F with PMH significant for hypertension, DM-II and prior TIA who presents to ED complaining of dizziness for one week. Patient notes dizziness that is worse with turning her head or looking up / neck extension. She has
associated N/V. No headache. No numbness / tingling. She was seen by her PCP and started on meclizine with temporary improvement in her symptoms.
Ass:
Vertigo
Benign Hypertension
DM-II
Plan:
Observe overnight for further evaluation and treatment.
Supportive care with meclizine +/- diazepam for dizziness and nausea.
Appreciate Neurology evaluation. Follow-up repeat MRI.
PT / Vestibular Therapy eval in the AM.
Continue usual home medications.
Original Note:
Family Physician
-
Family Physician: Tristen Vizcaino
Chief Complaint
-
Dizziness
History of Present Illness
Patient is a 73 y/o female past medical history of TIA, hypertension, hyperlipidemia and diabetes mellitus who presents with dizziness. Patient reports about a week ago she developed dizziness which she describes as a spinning sensation. She when
she is lying down is symptom free, but any movement triggers dizziness. She was started on meclizine by her PCP with some improvement in the dizziness, but today symptoms worsened again prompting her to come to the emergency department for
evaluation. Patient denies focal weakness, headache or blurry vision. She denies decreased hearing, ear pain or tinnitus.
Medical History
Past Medical History
Past Medical History: Reports Other
Additional Past Medical History:
Essential Hypertension
Hyperlipidemia
Diabetes Mellitus, Type II
TIA
Past Surgical History: Reports Other
Additional Past Surgical History:
Appendectomy
Social History
Tobacco: Non-smoker
Alcohol: None
Drug: None
Living: With Family
Family History
Family History: Not pertinent
Allergies / Home Medications
Allergies reflects when Allergies were last updated in [facility].
Home Medications with original date entered in [facility] [facility]
Allergy/Medication List:
Allergies
Allergy/AdvReac Type Severity Reaction Status Date / Time
Penicillins Allergy Rash Verified 03/07/24 12:19
Home Medications
amlodipine 5 mg tablet 5 mg PO QPM 09/09/23
aspirin 81 mg tablet,delayed release 81 mg PO DAILY Blood Clot Prevention/Tx 09/09/23
cholecalciferol (vitamin D3) 50 mcg (2,000 unit) capsule 50 mcg PO DAILY 09/09/23
metformin 500 mg tablet,extended release 24 hr 1,000 mg PO BID Diabetes 09/09/23
rosuvastatin 5 mg tablet 5 mg PO QPM High Cholesterol 09/09/23
meclizine 12.5 mg tablet 12.5 mg PO TID 03/07/24
semaglutide 1 mg/dose (4 mg/3 mL) subcutaneous pen injector (Ozempic) 1 mg SC GARCIA 03/07/24
valsartan 320 mg-hydrochlorothiazide 12.5 mg tablet 1 tab PO DAILY 03/07/24
Review of Systems
-
Unable to obtain full review of systems at this time due to: Language Barrier
Physical Exam
Vital Signs
Vital Signs
Temp Pulse Resp BP Pulse Ox
98.2 F 80 18 144/72 98
03/07/24 12:19 03/07/24 14:00 03/07/24 14:00 03/07/24 14:00 03/07/24 12:19
Physical Exam
General: Comfortable and Conversant
HEENT: Anicteric, Moist mucous membranes and PERRLA (Extra-Ocular Movements Intact)
Respiratory: Clear and Non Labored Respirations
Cardiac: S1/S2 and Regular Rhythm
GI: Soft and Non Tender
Rectal: Deferred by Provider
Musculoskeletal: No Clubbing, No Cyanosis and No Edema
Skin: Warm and Dry
Neuro: Awake, Alert, Oriented and Cranial Nerves Intact
Psych: Calm
Laboratory Results
-
03/07/24 12:33
03/07/24 12:33
Laboratory Results
Total Bilirubin 1.1 mg/dl (0.2-1.3) 03/07/24 12:33
AST 42 U/L (14-36) H 03/07/24 12:33
ALT 51 U/L (0-35) H 03/07/24 12:33
Alkaline Phosphatase 53 U/L (38-126) 03/07/24 12:33
Data Reviewed
-
CT Scan: Report Reviewed by me
Lab Data: Labs Reviewed by me
Impression/Plan
-
Dizziness, possible BPPV vs vestibular neuritis vs stroke
-Appreciate Neurology consult
-[facility] Brain MRI
-Continue aspirin
-Continue meclizine prn
-Consult PT/OT
Essential Hypertension
-Continue amlodipine and valsartan/HCTZ with hold parameters
Hyperlipidemia
Continue rosuvastatin
Diabetes Mellitus, Type II
-Continue metformin
-Monitor sugars and continue coverage insulin
DVT proph: SCDs
Code Status: Full Code
[2024-03-07 20:29] LABS: Glucose - Point of Care 157 mg/dl (70-99)
[2024-03-07] MEDS: NORVASC 5 MG PO (20:33)
[2024-03-07] MEDS: GLUCOPHAGE XR EXTENDED RELEASE 1000 MG PO (20:34)
[2024-03-07] MEDS: CRESTOR 5 MG PO (20:34)
[2024-03-08] VITALS (7 sets, daily range): BP systolic 130–153; BP diastolic 65–86; PULSE 69–78
[2024-03-08 07:25] LABS: Glucose - Point of Care 126 mg/dl (70-99)
--- NOTE | 2024-03-08 08:00 | PTCARENOTE ---
Vital signs not taken. Patient sleeping with unlabored respirations and monitored rhythm NSR in the 60s. See vital sign record.
[2024-03-08 08:15] LABS: Glycohemoglobin (HgbA1c) 6.2 % (4.0-5.6)
[2024-03-08] MEDS: DIOVAN 320 MG PO (10:23)
[2024-03-08] MEDS: VITAMIN D3 (cholecalciferol) 50 MCG PO (10:24)
[2024-03-08] MEDS: ASPIR LOW (ENTERIC COATED) 81 MG PO (10:25)
[2024-03-08] MEDS: GLUCOPHAGE XR EXTENDED RELEASE 1000 MG PO (10:25)
[2024-03-08] MEDS: ORETIC 12.5 MG PO (10:25)
[2024-03-08 11:54] LABS: Glucose - Point of Care 142 mg/dl (70-99)
--- NOTE | 2024-03-08 13:10 | W.PN.NEURO.1 ---
Today's Communication / Plan
-
.
Subjective/Objective
Subjective Data
Date of Service: March 08, 2024
Neurology Follow Up Note.
Ms. Gale reports resolution of her vertigo. No reports of headache, nausea. She is worried that her symptoms may return and is avoiding change in position.
Valeria was seen by PT.
Brain MRI showed no acute infarcts, mild atrophy.
MAR: no symptomatic treatment of vertigo was given.
PMH: HTN, DLP, DM, polyneuropathy
PSH:appendectomy
SH: lives with son, independent in ADLs, retired; non-smoker.
FH: son�hydrocephalus, epilepsy; mother from gastric cancer, father�hepatic cirrhosis
All: Penicillins
ROS:Constitutional: Negative. Negative for chills, fever and unexpected weight change.
HENT: positive for vertigo
Eyes: Negative. Negative for photophobia, pain and visual disturbance.
Respiratory: Negative for cough, choking and shortness of breath.
Cardiovascular: Negative for chest pain, palpitations and leg swelling.
Gastrointestinal: positive for intermittent nausea/emesis
Endocrine: Negative. Negative for cold intolerance.
Genitourinary: Negative for dysuria, flank pain and urgency.
Musculoskeletal: Negative for back pain, gait problem, neck pain and neck stiffness.
Skin: Negative for rash.
Allergic/Immunologic: Negative. Negative for immunocompromised state.
Neurological: positive for allodynia and distal paresthesias in the left foot.
Psychiatric/Behavioral: Negative for behavioral problems, confusion and hallucinations.
General: Well developed. In no acute distress.
Cardio: Regular rate and rhythm without murmur. Extremities are without cyanosis or edema.
Neuro:
Mental Status: Alert, oriented to person, place, and date. Normal attention and recall. Slow speech. Tangential. Good fund of knowledge. Follows complex requests across the midline. Comprehension, naming, and repetition intact.
Cranial Nerves: . Pupils are equally round and reactive to light. EOMs full. Visual chatman full to confrontation. No ptosis. No nystagmus. V1-V3 intact to light touch and pinprick bilaterally, symmetric. Face symmetric. Normal hearing AU.
The palate elevated well. SCMs and traps 5/5. Tongue midline. No dysarthria.
Motor: Normal bulk and tone. No pronator or arm drift. Strength 5/5 throughout. No clonus.
Reflexes: 2+ throughout the upper extremities and knees. Plantar responses flexor bilaterally.
Sensory: reduced vibration at the R>L toes
Coordination: No dysmetria on FTN or HTS or tremor.
Gait: deferred
Assessment and Plan:
I. Probably BPPV. Asymptomatic.
II. History of TIA(08/2023)
III Metabolic polyneuropathy
IV. Mild brain atrophy
-Continue ASA 81mg QD
-Meclizine 25 mg Q8h PRN, Diazepam 1 mg Q12h PRN for vertigo
-ENT evaluation(can be done as OP)
-OP neurology follow up in 2-3 weeks
I personally reviewed all radiology and labs along with past medical records pertinent to current medical problems. Total time spent in patient care is 40 minutes.
Thank you for allowing us to participate in the care of this patient. Please do not hesitate to contact us with any questions or concerns.
Objective Data
Vital Signs
Temp Pulse Resp BP Pulse Ox
36.8 C 62 13 137/65 97
03/08/24 11:01 03/08/24 11:01 03/08/24 11:01 03/08/24 11:01 03/08/24 11:01
Lab Results
03/07/24 12:33
03/07/24 12:33
Sodium 141 mmol/L (135-145) 03/07/24 12:33
Potassium 3.6 mmol/L (3.5-5.1) 03/07/24 12:33
BUN 11 mg/dl (7-17) 03/07/24 12:33
Glucose 173 mg/dl (70-99) H 03/07/24 12:33
Calcium 9.9 mg/dl (8.4-10.2) 03/07/24 12:33
Patient Allergies
Penicillins Allergy (Verified 03/07/24 12:19)
Rash
--- NOTE | 2024-03-08 13:30 | W.DS.TRANS ---
DC Summary - It Project Manager
-
Discharge Instructions:
Discharge Diagnosis/Procedures Peripheral vertigo
Diet Diabetic, Carb Controlled
Instructions:
Stand-Alone Forms:
Changes to Home Medications: Yes
Discharge Medications:
DC Medications w/original date entered in [employer]
amlodipine 5 mg tablet 5 mg PO QPM Blood Pressure 09/09/23
aspirin 81 mg tablet,delayed release 81 mg PO DAILY Blood Clot Prevention/Tx 09/09/23
cholecalciferol (vitamin D3) 50 mcg (2,000 unit) capsule 50 mcg PO DAILY Supplement 09/09/23
metformin 500 mg tablet,extended release 24 hr 1,000 mg PO BID Diabetes 09/09/23
rosuvastatin 5 mg tablet 5 mg PO QPM High Cholesterol 09/09/23
semaglutide 1 mg/dose (4 mg/3 mL) subcutaneous pen injector (Ozempic) 1 mg SC GARCIA Diabetes 03/07/24
valsartan 320 mg-hydrochlorothiazide 12.5 mg tablet 1 tab PO DAILY Blood Pressure 03/07/24
diazepam 2 mg tablet 1 mg (1/2 x 2 mg) PO [id number] PRN intractable vertigo #10 tabs 03/08/24
meclizine 25 mg tablet 25 mg PO Q8HPRN PRN vertigo #60 tabs 03/08/24
Home Medication Changes
Diazepam added
Pending Results: No
== END 2024-03-08 14:50 | disposition home or self-care (01) ==
LOC: 4 EAST ACU 17:59
PROVIDERS: Physician Assistant; ADMITTING PHYSICIAN Hospitalist; ATTENDING PHYSICIAN Internal Medicine; CONSULT PHYSICIAN Psychiatry & Neurology Neurology; EMERGENCY PHYSICIAN Emergency Medicine; FAMILY PHYSICIAN Internal Medicine
DX: H81.399 Other peripheral vertigo, unspecified ear (principal); I10 Essential (primary) hypertension; E11.42 Type 2 diabetes mellitus with diabetic polyneuropathy; E78.00 Pure hypercholesterolemia, unspecified; R11.2 Nausea with vomiting, unspecified; G31.9 Degenerative disease of nervous system, unspecified; R27.0 Ataxia, unspecified; Z88.0 Allergy status to penicillin; Z79.84 Long term (current) use of oral hypoglycemic drugs; Z79.02 Long term (current) use of antithrombotics/antiplatelets; Z79.85 Long-term (current) use of injectable non-insulin antidiabetic drugs; Z79.82 Long term (current) use of aspirin; Z86.73 Personal history of transient ischemic attack (TIA), and cerebral infarction without residual deficits; Z90.49 Acquired absence of other specified parts of digestive tract
CPT/HCPCS: 70450; 70551; 80053; 82962; 83036; 85025; 93005; 97112; 97161; 97166; 99285; G0378